=== PATIENT | female | born 2005 | race Caucasian/White ===

== ENCOUNTER 2025-03-17 19:04 | Emergency (ER) | payer SELFPAY ==
[2025-03-17 19:13] VITALS: BP 120/75
--- NOTE | 2025-03-17 21:19 | ED.GENMED ---
History of Present Illness
General
Chief Complaint: Head Injury
Source: patient
Time Seen by Provider: 03/17/25 21:05
History of Present Illness
History of Present Illness:
19-year-old female with past medical history of Chiari malformation presenting to the emergency department for evaluation after she fell on ice and hit her head on the ground Sunday, since that time has had headache, difficulty
concentrating/focusing, light sensitivity and fatigue. There is no LOC, vomiting or visual changes. Patient denies any previous history of head injury. No other concerns presently.
Past History
Past History
ED Past Medical History: Arrthythmia, Asthma, Psychiatric and Other
ED Past Surgical History: None
Social History
Tobacco: Non-smoker
Alcohol: None
Drug: None
Personal: Single
Living: with family
Review of Systems
Review of Systems
All Other Systems: ROS reviewed and negative except as documented in HPI and ROS
Phy Exam
Physical Exam
Physical Exam:
GENERAL: Alert , in no apparent distress
EYE: conjunctiva clear
Head: Normocephalic atraumatic
NECK: Supple,
ENT: mmm.
LUNGS: no acute respiratory distress
NEUROLOGICAL: Alert and oriented
SKIN: Warm and dry, skin intact.
MUSCULOSKELETAL: well perfused.
PSYCH: Normal and appropriate interaction.
Course
Orders/Labs/Results
Orders:
Orders
03/17/25 19:22
CT Cervical Spine W/o Iv Contr Urgent
Comment:
Reason For Exam: fall, head and neck pain
CT Head W/o Iv Contrast Urgent
Comment:
Reason For Exam: fall, head and neck pain
Vital Signs
Initial and Last Documented VS:
Initial Vital Signs
Temp Pulse Resp BP Pulse Ox
99 F 78 20 120/75 98
03/17/25 19:13 03/17/25 19:13 03/17/25 19:13 03/17/25 19:13 03/17/25 19:13
Last Documented Vital Signs
Temp Pulse Resp BP Pulse Ox
99 F 78 18 120/75 98
03/17/25 19:13 03/17/25 19:13 03/17/25 21:26 03/17/25 19:13 03/17/25 21:21
MDM/Problems Addressed
Differential Diagnosis Includes:
Concussion
Contusion
Intracranial bleeding
MDM/Problems Addressed:
19-year-old female presenting to the ER for evaluation following head injury this past Sunday, went to urgent care today who referred patient to the ER for CT imaging. Based off of history I suspect concussion is most likely diagnosis. CT of the
head and C-spine ordered.
*Radiology
Radiology exam reviewed: radiology read reviewed
*Pulse Oximetry
SaO2: 98
Oxygen Mode of Delivery: Room air
Patient hypoxic: no
*Critical Care Note
Total Time (30-74mins, 75-104mins- exclusive of procedures): Not Applicable
Patient Management
Escalation/DeEscalation of care consider admission/obs:
CT scan negative for any acute pathology. Patient stable for discharge home and aware of return precautions to the ER.
ED Attending Note
-
Portions of this chart may have been created with voice recognition software.� Occasional wrong word or��sound alike� substitutions may have occurred due to the inherent limitations of voice recognition software.
Discharge Plan
Departure
Patient Disposition: Home (Routine Discharge)
Date of Disposition: 03/17/25
Time of Disposition: 21:19
Patient with high blood pressure during this ER visit?: No
Discharge Problem:
Head injury
Instructions: Concussion, Adult (DC)
Referrals:
Billy Chang MD [Family Provider, Internal Medicine]
Stand Alone Forms: Return to Work
Interventions
Interventions:
*General Assessment Last Done: 03/17/25 19:13
*Neglect/Abuse Screening Last Done: 03/17/25 19:13
*ED COVID-19 Vaccine History Last Done: 03/17/25 19:13
*ED Influenza Vaccine History Last Done: 03/17/25 19:13
[facility] Fall Risk Assessment Tool Last Done: 03/17/25 21:26
*Risk Screen - Suicide (C-SSRS) Last Done: 03/17/25 21:28
*Nursing Disposition Last Done: 03/17/25 21:28
ED- Neurological Assessment Last Done: 03/17/25 21:27
ED-Skin Assessment Last Done: 03/17/25 21:27
Discharge Date and Time
Discharge Date/Time: 03/17/25 21:29
Print Language: WALLISIAN
== END 2025-03-17 21:29 | disposition home or self-care (01) ==
LOC: EMR 19:04
PROVIDERS: EMERGENCY PHYSICIAN Student in an Organized Health Care Education/Training Program; FAMILY PHYSICIAN Student in an Organized Health Care Education/Training Program
DX: S09.90XA Unspecified injury of head, initial encounter (principal); W00.0XXA Fall on same level due to ice and snow, initial encounter; J45.909 Unspecified asthma, uncomplicated
CPT/HCPCS: 99284; 70450; 72125